=== PATIENT | female | born 1980 | race African-American/Black ===

== ENCOUNTER 2019-12-14 07:37 | Emergency (ER) | payer OTHER ==
[~2019-12-14] VITALS: Ht 165.1 cm; Wt 72.0 kg
[~2019-12-14 07:37] MED LIST: BUTA1CAP29 PO; CYCL10TA2 PO; DIPH25CA58 PO; HYDR-3164 PO; IBUP-1027 PO; TRAM50TA PO
[2019-12-14] MEDS: IV NORMAL SALINE 1000ML BAG 1,000 ML IV ONE (08:25)
[2019-12-14] MEDS: diphenhydrAMINE 50 MG/ML VIAL IVP ONE (08:26)
[2019-12-14] MEDS: KETOROLAC 30 MG/ML VIAL. IVP ONE (08:27)
[2019-12-14 08:28] LABS: BASO # 0.1 x10^3/uL (0.0-0.2); BASO % 0 % (0-3); EOS # 0.1 x10^3/uL (0.0-0.7); EOS % 1 % (0-3); HEMATOCRIT 38.1 % (36.0-47.0); HEMOGLOBIN 12.5 g/dL (12.0-15.5); LYMPH # 2.7 x10^3/uL (1.0-4.8); LYMPH % 19 % (24-48); MEAN CORPUSCULAR HEMOGLOBIN 26 pg (25-35); MEAN CORPUSCULAR HGB CONC 33 g/dL (31-37); MEAN CORPUSCULAR VOLUME 80 fL (79-100); MONO # 0.5 x10^3/uL (0.0-1.1); MONO % 4 % (0-9); NEUT # 10.6 x10^3/uL (1.8-7.7); NEUT % 76 % (31-73); PLATELET COUNT 399 x10^3/uL (140-400); RED BLOOD COUNT 4.76 x10^6/uL (3.50-5.40); WHITE BLOOD COUNT 13.9 x10^3/uL (4.0-11.0)
--- NOTE | 2019-12-14 08:39 | PHYS DOC ---
Past Medical History Past Medical History: Migraines Past Surgical History: Other Additional Past Surgical Histo: D/C Smoking Status: Current Every Day Smoker Alcohol Use: None Drug Use: None Adult General Chief Complaint Chief Complaint: HEADACHE HPI HPI Patient is a 39 year old female with history of migraine headache who presents with complaint of headache. Patient complaining of constant left sided aching pain for the last 1 week that did not get better with taking natx-nzj-gqciogl aspirin. Patient denies nausea and vomiting, change of vision, fever and chills, focal neuro deficit, head injury. Patient states she had dizziness and change of hearing from left ear. Patient states her headache is like her usual migraine headache and usually she gets 3 months of headache every day that happened once every other year. Patient doesn't feel good to answer the questions. Review of Systems Review of Systems Constitutional: Denies fever or chills [] Eyes: Denies change in visual acuity, redness, or eye pain [] HENT: Denies nasal congestion or sore throat [] Respiratory: Denies cough or shortness of breath [] Cardiovascular: No additional information not addressed in HPI [] GI: Denies abdominal pain, nausea, vomiting, bloody stools or diarrhea [] : Denies dysuria or hematuria [] Musculoskeletal: Denies back pain or joint pain [] Integument: Denies rash or skin lesions [] Neurologic: Denies focal weakness or sensory changes, reports headache[] Endocrine: Denies polyuria or polydipsia [] All other systems were reviewed and found to be within normal limits, except as documented in this note. Current Medications Current Medications Current Medications Medications (Trade) Dose Ordered Sig/[facility] Start Time Stop Time Status Last Admin Dose Admin Diphenhydramine HCl (Benadryl) 50 mg 1X ONCE 12/14/19 08:15 12/14/19 08:16 DC 12/14/19 08:26 50 MG Fentanyl Citrate (Fentanyl 2ml Vial) 50 mcg 1X ONCE 12/14/19 09:30 12/14/19 09:31 DC 12/14/19 10:16 50 MCG Ketorolac Tromethamine (Toradol 30mg Vial) 30 mg 1X ONCE 12/14/19 08:15 12/14/19 08:16 DC 12/14/19 08:27 30 MG Ondansetron HCl (Zofran) 4 mg 1X ONCE 12/14/19 09:30 12/14/19 09:31 DC 12/14/19 10:14 4 MG Sodium Chloride 1,000 ml @ 1,000 mls/hr 1X ONCE 12/14/19 08:15 12/14/19 09:14 DC 12/14/19 08:25 1,000 MLS/HR Allergies Allergies Allergies Coded Allergies Type Severity Reaction Last Updated Verified No Known Drug Allergies 07/26/16 No Physical Exam Physical Exam Constitutional: Well developed, well nourished, moderate distress, non-toxic appearance. [] HENT: Normocephalic, atraumatic, bilateral external ears normal, oropharynx moist, no oral exudates, nose normal. [] Eyes: PERRLA, EOMI, conjunctiva normal, no discharge. [] Neck: Normal range of motion, no tenderness, supple, no stridor. [] Cardiovascular:Heart rate regular rhythm, no murmur [] Lungs & Thorax: Bilateral breath sounds clear to auscultation [] Abdomen: Bowel sounds normal, soft, no tenderness, no masses, no pulsatile m asses. [] Skin: Warm, dry, no erythema, no rash. [] Back: No tenderness, no CVA tenderness. [] Extremities: No tenderness, no cyanosis, no clubbing, ROM intact, no edema. [] Neurologic: Alert and oriented X 3, normal motor function, normal sensory function, no focal deficits noted. [] Psychologic: Affect normal, mood normal. [] Current Patient Data Vital Signs Vital Signs Date Time Temp Pulse Resp B/P (MAP) Pulse Ox O2 Delivery O2 Flow Rate FiO2 12/14/19 10:16 16 100 Room Air 12/14/19 08:22 92 12/14/19 07:47 98.0 142/80 (100) 98.0 Lab Values Laboratory Tests Test 12/14/19 08:03 12/14/19 08:10 POC Urine HCG, Qualitative Hcg negative (Negative) White Blood Count 13.9 x10^3/uL (4.0-11.0) H Red Blood Count 4.76 x10^6/uL (3.50-5.40) Hemoglobin 12.5 g/dL (12.0-15.5) Hematocrit 38.1 % (36.0-47.0) Mean Corpuscular Volume 80 fL (79-100) Mean Corpuscular Hemoglobin 26 pg (25-35) Mean Corpuscular Hemoglobin Concent 33 g/dL (31-37) Red Cell Distribution Width 15.0 % (11.5-14.5) H Platelet Count 399 x10^3/uL (140-400) Neutrophils (%) (Auto) 76 % (31-73) H Lymphocytes (%) (Auto) 19 % (24-48) L Monocytes (%) (Auto) 4 % (0-9) Eosinophils (%) (Auto) 1 % (0-3) Basophils (%) (Auto) 0 % (0-3) Neutrophils # (Auto) 10.6 x10^3/uL (1.8-7.7) H Lymphocytes # (Auto) 2.7 x10^3/uL (1.0-4.8) Monocytes # (Auto) 0.5 x10^3/uL (0.0-1.1) Eosinophils # (Auto) 0.1 x10^3/uL (0.0-0.7) Basophils # (Auto) 0.1 x10^3/uL (0.0-0.2) Sodium Level 144 mmol/L (136-145) Potassium Level 3.8 mmol/L (3.5-5.1) Chloride Level 106 mmol/L (98-107) Carbon Dioxide Level 22 mmol/L (21-32) Anion Gap 16 (6-14) H Blood Urea Nitrogen 11 mg/dL (7-20) Creatinine 1.2 mg/dL (0.6-1.0) H Estimated GFR (Cockcroft-Gault) 61.2 BUN/Creatinine Ratio 9 (6-20) Glucose Level 123 mg/dL (70-99) H Calcium Level 8.9 mg/dL (8.5-10.1) Total Bilirubin 0.3 mg/dL (0.2-1.0) Aspartate Amino Transferase (AST) 15 U/L (15-37) Alanine Aminotransferase (ALT) 22 U/L (14-59) Alkaline Phosphatase 81 U/L (46-116) Total Protein 7.5 g/dL (6.4-8.2) Albumin 3.9 g/dL (3.4-5.0) Albumin/Globulin Ratio 1.1 (1.0-1.7) Laboratory Tests 12/14/19 08:10 Laboratory Tests 12/14/19 08:10 EKG EKG [] Radiology/Procedures Radiology/Procedures [facility] [address] [place] [address] IMAGING REPORT Signed PATIENT: PETER BERGMAN ACCOUNT: [id number] : 1980 LOCATION: ER AGE: 39 SEX: F EXAM STATUS: REG ER ORD. PHYSICIAN: EMI MCHUGH MD REASON: headache PROCEDURE: CT HEAD WO CONTRAST STUDY: CT head without contrast INDICATION: Headache. COMPARISON: 08/13/2016 TECHNIQUE: Axial CT imaging through the head without the use of intravenous contrast. Sagittal and coronal reformats were obtained. One or more of the following individualized dose reduction techniques were utilized for this examination: 1. Automated exposure control 2. Adjustment of the mA and/or kV according to patient size 3. Use of iterative reconstruction technique. FINDINGS: No acute intracranial hemorrhage. Diehl-white matter differentiation is maintained. No mass effect, midline shift or hydrocephalus. Unremarkable scalp and orbits. Normally aerated mastoid air cells and middle ears. Fluid seen within the visualized paranasal sinuses. Intact calvarium. IMPRESSION: No acute intracranial abnormality by CT. Electronically signed by: DIVINA CHRISTENSEN MD (12/14/2019 8:49 AM) [id number] DICTATED and SIGNED BY: DIVINA CHRISTENSEN MD DATE: 12/14/19 0849 Course & Med Decision Making Course & Med Decision Making Pertinent Labs and Imaging studies reviewed. (See chart for details) Evaluation of patient nurse with 39-year-old female patient with complaint of migraine headache likely previous episode of migraine headache that did not get better with [id number] aspirin like her usual pain. Patient had unremarkable physical exam and labs except for mild leukocytosis. CT head was unremarkable. Patient felt better with treatment in ER and prescription for was given and was advised to follow-up with her primary care physician. I've spoken with the patient and/or caregivers. I've explained the patient's condition, diagnosis and treatment plan based on information available to me at this time. I've answered the patient's and/or caregivers questions and addressed any concerns. The patient and/or caregivers have a good understanding the patient's diagnosis, condition and treatment plan as can be expected at this point. Vital signs have been stabilized. The patient's condition is stable for discharge from the emergency department. The patient will pursue further outpatient evaluation with her primary care provider or other designated consulting physician as outlined in the discharge instructions. Patient and/or caregivers are agreeable to this plan of care and follow-up instructions have been explained in detail. The patient and/or caregivers have received these instructions in written format and expressed understanding of these discharge instructions. The patient and her caregivers are aware that if any significant change in condition or worsening of symptoms should prompt him to immediately return to this of the closest emergency department. If an emergent department is not readily available I would encourage him to call 911. Dragon Disclaimer Dragon Disclaimer This electronic medical record was generated, in whole or in part, using a voice recognition dictation system. Departure Departure Impression: Primary Impression: Migraine headache Disposition: HOME, SELF-CARE Condition: IMPROVED Referrals: DORA POWERS MD (PCP) Patient Instructions: Migraine Headache Additional Instructions: Drink plenty of liquids Follow-up with your primary care physician in 3-5 days Return to ER if not getting better Thank you for visiting [facility]. We appreciate you trusting us with your care. If any additional problems come up don't hesitate to return to visit us. Please follow up with your primary care provider so they can plan additional care if needed and know about the problem that you had. If symptoms worsen come back to the Emergency Department. Any concerning symptoms that start such as chest pain, shortness of air, weakness or numbness on one side of the body, running high fevers or any other concerning symptoms return to the ER. Scripts Butalbital/Aspirin/Caffeine (FIORINAL 50-325-40 MG CAPSULE) 1 Each Capsule 1 EACH PO QID PRN for HEADACHE, #20 CAP Prov: EMI MCHUGH MD 12/14/19 Problem Qualifiers Primary Impression: Migraine headache Migraine type: unspecified Status migrainosus presence: without status migrainosus Intractability: not intractable Qualified Codes: G43.909 - Migraine, unspecified, not intractable, without status migrainosus EMI MCHUGH MD Dec 14, 2019 08:39
[2019-12-14 08:40] LABS: CALCIUM 8.9 mg/dL (8.5-10.1); CREATININE 1.2 mg/dL (0.6-1.0); GFR 61.2; POTASSIUM 3.8 mmol/L (3.5-5.1)
[2019-12-14 08:46] LABS: ALBUMIN 3.9 g/dL (3.4-5.0); ALBUMIN/GLOBULIN RATIO 1.1 (1.0-1.7); TOTAL BILIRUBIN 0.3 mg/dL (0.2-1.0); TOTAL PROTEIN 7.5 g/dL (6.4-8.2)
--- NOTE | 2019-12-14 08:51 | RAD ---
STUDY: CT head without contrast INDICATION: Headache. COMPARISON: 08/13/2016 TECHNIQUE: Axial CT imaging through the head without the use of intravenous contrast. Sagittal and coronal reformats were obtained. One or more of the following individualized dose reduction techniques were utilized for this examination: 1. Automated exposure control 2. Adjustment of the mA and/or kV according to patient size 3. Use of iterative reconstruction technique. FINDINGS: No acute intracranial hemorrhage. Diehl-white matter differentiation is maintained. No mass effect, midline shift or hydrocephalus. Unremarkable scalp and orbits. Normally aerated mastoid air cells and middle ears. Fluid seen within the visualized paranasal sinuses. Intact calvarium. IMPRESSION: No acute intracranial abnormality by CT. Electronically signed by: DIVINA CHRISTENSEN MD (12/14/2019 8:49 AM) [id number]
[2019-12-14] MEDS: ONDANSETRON PF 4 MG/2 ML VIAL. IVP ONE (10:14)
[2019-12-14] MEDS: fentaNYL PF VIAL 100 MCG/2 ML VIAL IVP ONE (10:16)
[2019-12-14] MEDS ORDERED: BUTA1CAP31 PO (10:29)
[2019-12-14 10:30] VITALS: BP 126/67
== END 2019-12-14 11:04 | disposition home or self-care (01) ==
LOC: ER 07:37
DX: G43.909 Migraine, unspecified, not intractable, without status migrainosus (principal); R42 Dizziness and giddiness; F17.200 Nicotine dependence, unspecified, uncomplicated
CPT/HCPCS: 36415; 70450; 80053; 81025; 85025; 96361; 96374; 96375; 99285; J1200; J1885; J2405; J3010; J7030

== ENCOUNTER 2019-12-20 09:53 | Emergency (ER) | payer OTHER ==
[~2019-12-20] VITALS: Ht 162.6 cm; Wt 72.7 kg
[~2019-12-20 09:53] MED LIST changes: +BUTA1CAP31 PO
--- NOTE | 2019-12-20 10:27 | PHYS DOC ---
Past Medical History Past Medical History: No Pertinent History, Migraines Past Surgical History: Tubal ligation, Other Additional Past Surgical Histo: D/C Smoking Status: Current Every Day Smoker Alcohol Use: None Drug Use: None Adult General Chief Complaint Chief Complaint: CHEST PAIN HPI HPI Patient is a 39 year old female who presents with complaint of atypical chest p ain and adverse reaction to medication this morning. Patient states that she suffers from migraines and has been to the ER twice recently without relief of symptoms and she has an appointment today with her doctor for ongoing migraines. In an attempt to help her migraine this morning she took 2 ibuprofen along with a pain medication from her boyfriend which she does not recall the name of. Approximately 1 hour later she began experiencing abnormal symptoms including weakness, intermittent sharp chest pains, dizziness. Review of Systems Review of Systems All other systems were reviewed and found to be within normal limits, except as documented in this note. Current Medications Current Medications Current Medications Medications (Trade) Dose Ordered Sig/[facility] Start Time Stop Time Status Last Admin Dose Admin Sodium Chloride 1,000 ml @ 1,000 mls/hr 1X ONCE 12/20/19 10:30 12/20/19 11:29 DC 12/20/19 11:32 1,000 MLS/HR Allergies Allergies Allergies Coded Allergies Type Severity Reaction Last Updated Verified No Known Drug Allergies 07/26/16 No Physical Exam Physical Exam Constitutional: Well developed, well nourished, mildly anxious, non-toxic appearance. [] HENT: Normocephalic, atraumatic, bilateral external ears normal, oropharynx m oist, no oral exudates, nose normal. [] Eyes: PERRLA, EOMI, conjunctiva normal, no discharge. [] Neck: Normal range of motion, no tenderness, supple, no stridor. [] Cardiovascular:Heart rate regular rhythm, no murmur [] Lungs & Thorax: Bilateral breath sounds clear to auscultation [] Abdomen: Bowel sounds normal, soft, no tenderness, no masses, no pulsatile masses. [] Skin: Warm, dry, no erythema, no rash. [] Back: No tenderness, no CVA tenderness. [] Extremities: No tenderness, no cyanosis, no clubbing, ROM intact, no edema. [] Neurologic: Alert and oriented X 3, normal motor function, normal sensory function, no focal deficits noted. [] Psychologic: Affect normal, judgement normal, mood normal. [] Current Patient Data Vital Signs Vital Signs Date Time Temp Pulse Resp B/P (MAP) Pulse Ox O2 Delivery O2 Flow Rate FiO2 12/20/19 11:39 69 140/74 (96) 95 Room Air 12/20/19 10:00 98.5 17 98.5 Lab Values Laboratory Tests Test 12/20/19 11:20 White Blood Count 13.7 x10^3/uL (4.0-11.0) H Red Blood Count 4.02 x10^6/uL (3.50-5.40) Hemoglobin 10.7 g/dL (12.0-15.5) L Hematocrit 32.0 % (36.0-47.0) L Mean Corpuscular Volume 80 fL (79-100) Mean Corpuscular Hemoglobin 27 pg (25-35) Mean Corpuscular Hemoglobin Concent 34 g/dL (31-37) Red Cell Distribution Width 14.8 % (11.5-14.5) H Platelet Count 361 x10^3/uL (140-400) Neutrophils (%) (Auto) 85 % (31-73) H Lymphocytes (%) (Auto) 10 % (24-48) L Monocytes (%) (Auto) 4 % (0-9) Eosinophils (%) (Auto) 1 % (0-3) Basophils (%) (Auto) 0 % (0-3) Neutrophils # (Auto) 11.6 x10^3/uL (1.8-7.7) H Lymphocytes # (Auto) 1.4 x10^3/uL (1.0-4.8) Monocytes # (Auto) 0.5 x10^3/uL (0.0-1.1) Eosinophils # (Auto) 0.1 x10^3/uL (0.0-0.7) Basophils # (Auto) 0.1 x10^3/uL (0.0-0.2) Sodium Level 141 mmol/L (136-145) Potassium Level 3.3 mmol/L (3.5-5.1) L Chloride Level 105 mmol/L (98-107) Carbon Dioxide Level 25 mmol/L (21-32) Anion Gap 11 (6-14) Blood Urea Nitrogen 7 mg/dL (7-20) Creatinine 0.9 mg/dL (0.6-1.0) Estimated GFR (Cockcroft-Gault) 85.2 Glucose Level 82 mg/dL (70-99) Calcium Level 9.1 mg/dL (8.5-10.1) Troponin I Quantitative < 0.017 ng/mL (0.000-0.055) Thyroid Stimulating Hormone (TSH) 0.748 uIU/mL (0.358-3.74) Free Thyroxine 1.14 ng/dL (0.76-1.46) Laboratory Tests 12/20/19 11:20 Laboratory Tests 12/20/19 11:20 EKG EKG EKG shows a normal sinus rhythm with no ST changes. Heart rate 71 and normal intervals. [] Radiology/Procedures Radiology/Procedures Unremarkable [] Course & Med Decision Making Course & Med Decision Making Pertinent Labs and Imaging studies reviewed. (See chart for details) 1025: Patient seen for what appears to be reaction to medication. Will check labs and give IV fluids. Her EKG is unremarkable. 1231: Patient's work-up is complete and is unremarkable at this time. She is resting on reexamination. She has had improvement in her symptoms and she has an appointment today at [facility] for ongoing chronic migraines. She is stable for discharge at this time. Dragon Disclaimer Dragon Disclaimer This electronic medical record was generated, in whole or in part, using a voice recognition dictation system. Departure Departure Impression: Primary Impression: Adverse effects of medication Additional Impression: Chronic migraine Disposition: 01 HOME, SELF-CARE Condition: STABLE Referrals: DORA POWERS MD (PCP) Patient Instructions: Migraine Headache Additional Instructions: Please see your doctor today regarding further treatment for chronic migraine Problem Qualifiers BISHOP PETERS DO Dec 20, 2019 10:26
[2019-12-20] MEDS ORDERED: IV NORMAL SALINE 1000ML BAG 1,000 ML IV ONE (10:30)
--- NOTE | 2019-12-20 10:41 | RAD ---
CHEST AP ONLY Clinical Indication: Chest pain Comparison: None. Findings: Portable upright frontal view chest was obtained. The cardiomediastinal silhouette is normal. Lungs are clear. There is no pneumothorax. No pleural effusion is appreciated. No acute bone abnormality. IMPRESSION: No acute cardiopulmonary process. Electronically signed by: Ronald Lopez MD (12/20/2019 10:37 AM) [id number]
--- NOTE | 2019-12-20 11:08 | EKG ---
[facility] [address] [place] [address] Test Date: 2019-12-20 Test Time: 10:04:43 Pat Name: PETER BERGMAN Department: Room: Gender: F [employer]: : 1980 Requested By: BISHOP PETERS Order Number: [id number] Reading MD: Measurements Intervals [place] Rate: 71 P: 0 MT: 124 QRS: 3 QRSD: 84 T: -11 QT: 350 QTc: 384 Interpretive Statements SINUS RHYTHM NON SPECIFIC T ABNORMALITY BORDERLINE ECG No previous ECG available for comparison
[2019-12-20 11:29] LABS: BASO # 0.1 x10^3/uL (0.0-0.2); BASO % 0 % (0-3); EOS # 0.1 x10^3/uL (0.0-0.7); EOS % 1 % (0-3); HEMOGLOBIN 10.7 g/dL (12.0-15.5); LYMPH # 1.4 x10^3/uL (1.0-4.8); LYMPH % 10 % (24-48); MEAN CORPUSCULAR HEMOGLOBIN 27 pg (25-35); MEAN CORPUSCULAR HGB CONC 34 g/dL (31-37); MEAN CORPUSCULAR VOLUME 80 fL (79-100); MONO # 0.5 x10^3/uL (0.0-1.1); MONO % 4 % (0-9); NEUT # 11.6 x10^3/uL (1.8-7.7); NEUT % 85 % (31-73); PLATELET COUNT 361 x10^3/uL (140-400); RED BLOOD COUNT 4.02 x10^6/uL (3.50-5.40); RED CELL DISTRIBUTION WIDTH 14.8 % (11.5-14.5); WHITE BLOOD COUNT 13.7 x10^3/uL (4.0-11.0)
[2019-12-20 11:41] LABS: CALCIUM 9.1 mg/dL (8.5-10.1); CREATININE 0.9 mg/dL (0.6-1.0); GFR 85.2; POTASSIUM 3.3 mmol/L (3.5-5.1)
[2019-12-20 12:05] LABS: FREE T4 1.14 ng/dL (0.76-1.46); THYROID STIM HORMONE (TSH) 0.748 uIU/mL (0.358-3.74)
[2019-12-20 13:09] VITALS: BP 163/79
== END 2019-12-20 13:35 | disposition home or self-care (01) ==
LOC: ER 09:53
DX: T39.315A Adverse effect of propionic acid derivatives, initial encounter (principal); T50.995A Adverse effect of other drugs, medicaments and biological substances, initial encounter; G43.909 Migraine, unspecified, not intractable, without status migrainosus; R07.89 Other chest pain; R42 Dizziness and giddiness; F17.200 Nicotine dependence, unspecified, uncomplicated; Y92.89 Other specified places as the place of occurrence of the external cause
CPT/HCPCS: 36415; 71045; 80048; 84439; 84443; 84484; 85025; 93005; 96360; 99285; J7030